=== PATIENT | female | born 1965 | race African-American/Black ===

== ENCOUNTER 2017-07-25 12:50 | Outpatient (CLI) | payer BC ==
--- NOTE | 2017-07-25 14:57 | MMO ---
BILATERAL DIGITAL SCREENING MAMMOGRAMS WITH CAD COMPARISON: 05/04/2016, 02/24/2015, and 05/14/2013. FINDINGS: Breast tissue is heterogeneously dense which may reduce the sensitivity of mammography. No suspicio us masses or calcifications are identified. IMPRESSION: BI-RADS Category 1: Negative. Routine annual mammographic screening is recommended. POS: KATHERINE
== END 2017-07-25 12:51 | disposition home or self-care (01) ==
LOC: MAMMO 12:50
PROVIDERS: ATTEND Family Medicine
DX: Z12.31 Encounter for screening mammogram for malignant neoplasm of breast (principal)
CPT/HCPCS: 77067; G0202

== ENCOUNTER 2018-07-31 11:27 | Outpatient (CLI) | payer BC | END 2018-07-31 11:28 | disposition home or self-care (01) | LOC: BICMAMMO 11:27 | PROVIDERS: ATTEND Family Medicine | DX: Z12.31 Encounter for screening mammogram for malignant neoplasm of breast (principal) | CPT/HCPCS: 77063; 77067 ==

== ENCOUNTER 2019-09-01 08:30 | Outpatient (CLI) | payer OTHER ==
--- NOTE | 2019-09-01 09:04 | ULT ---
ULTRASOUND ABDOMINAL AORTA: HISTORY: abdominal bruit FINDINGS: The abdominal aortic measurements are as follows: Proximal: 2 x 2.8 cm Mid: 1.1 x 1.4 cm Distal: 1.2 x 1.2 cm The right common iliac artery measures 5.58 mm in the left common iliac artery measures 6 x 10 mm. IMPRESSION: No evidence of abdominal aortic aneurysm.
== END 2019-09-01 08:31 | disposition home or self-care (01) ==
LOC: BICULT 08:30
PROVIDERS: ATTEND Family Medicine
DX: R09.89 Other specified symptoms and signs involving the circulatory and respiratory systems (principal)
CPT/HCPCS: 76775

== ENCOUNTER 2020-03-03 07:45 | Outpatient (CLI) | payer BC ==
--- NOTE | 2020-03-03 08:32 | MMO ---
Bilateral MAMMO Bilat Screen [facility]. CLINICAL HISTORY: Patient is 54 years old and is seen for screening. The patient has no family history of breast cancer. The patient has no personal history of cancer. VIEWS: The views performed were: bilateral craniocaudal with tomosynthesis and bilateral mediolateral oblique with tomosynthesis. FILMS COMPARED: The present examination has been compared to prior imaging studies performed at [facility] on 06/24/2007, 03/08/2009 and 07/31/2018, and at [facility] on 02/17/2011. This study has been interpreted with the assistance of computer-aided detection. MAMMOGRAM FINDINGS: There are scattered fibroglandular densities. There are no suspicious masses, suspicious calcifications, or new areas of architectural distortion. IMPRESSION: THERE IS NO MAMMOGRAPHIC EVIDENCE OF MALIGNANCY. A ROUTINE FOLLOW-UP MAMMOGRAM IN 1 YEAR IS RECOMMENDED. THE RESULTS OF THIS EXAM WERE SENT TO THE PATIENT. ACR BI-RADS Category 1 - Negative MAMMOGRAPHY NOTE: 1. A negative mammogram report should not delay a biopsy if a dominant of clinically suspicious mass is present. 2. Approximately 10% to 15% of breast cancers are not detected by mammography. 3. Adenosis and dense breasts may obscure an underlying neoplasm. Reported by: JOLANTA AMADO MD Electonically Signed: [id number]
== END 2020-03-03 07:46 | disposition home or self-care (01) ==
LOC: BICMAMMO 07:45
PROVIDERS: ATTEND Family Medicine
DX: Z12.31 Encounter for screening mammogram for malignant neoplasm of breast (principal)
CPT/HCPCS: 77063; 77067

== ENCOUNTER 2022-09-19 10:40 | Emergency (ER) | payer BC, OTHER ==
[2022-09-19 11:18] LABS: #Lymphocytes 1.7 thou/uL (1.20-3.40); #Monocytes 0.4 thou/uL (0.11-0.59); #Neutrophils 2.3 thou/uL (1.40-6.50); %Basophils 0.3 % (0.0-1.0); %Eosinophils 0.3 % (0.0-10.0); %Lymphocytes 38.3 % (21.0-51.0); %Monocytes 9.6 % (0.0-10.0); %Neutrophils 51.5 % (42.0-75.0); Hemoglobin 13.1 g/dL (12.0-16.0); Mean Corpuscular HGB CONC 32.9 g/dL (32.0-36.0); Mean Corpuscular Hemoglobin 28.5 pg (27.0-31.0); Mean Corpuscular Volume 86.5 fl (78.0-98.0); Mean Platelet Volume 7.5 fL (7.4-10.4); Platelet Count 181 10x3/uL (130-400); RBC Distribution Width 12.8 % (11.5-14.5); Red Blood Cell (RBC) Count 4.59 mill/uL (4.20-5.40); White Blood Cell (WBC) Count 4.4 10x3/uL (4.8-10.8)
[2022-09-19 12:01] LABS: ALT (SGPT) 26 U/L (8-55); AST (SGOT) 24 U/L (5-34); Alkaline Phosphatase 83 U/L (40-110); Anion Gap 12 mmol/L (10-20); BUN (Urea Nitrogen) 9 mg/dL (9.8-20.1); Bilirubin, Total 0.3 mg/dL (0.2-1.2); CK (CPK) 128 U/L (29-168); Calc. Creatinine Clearance 0 mL/min (70-130); Calcium 9.5 mg/dL (7.8-10.44); Carbon Dioxide 28 mmol/L (22-29); Chloride 107 mmol/L (98-107); Estimated GFR 71; Globulin 3.1 g/dL (2.4-3.5); Glucose 118 mg/dL (70-105); Lipase 35 U/L (8-78); Potassium 3.8 mmol/L (3.5-5.1); Protein, Total 7.1 g/dL (6.0-8.3); Sodium 143 mmol/L (136-145)
[2022-09-19 12:21] LABS: Bacteria/HPF None Seen HPF (None Seen); Bilirubin Negative (Negative); Blood, Urine Negative (Negative); Clarity Clear (Clear); Glucose, Urine (Dipstick) Normal (Negative); Ketone, Urine Negative (Negative); Leukocyte 250 Leu/uL (Negative); Nitrite Negative (Negative); Protein, Urine (Dipstick) Negative (Neg-Trace); RBC/HPF 0-3 HPF (0-3); Specific Gravity, Urine 1.035 (1.002-1.036); Squamous Epithelial 0-3 HPF (0-3); Urobilinogen Normal mg/dL (Less than 2); WBC/HPF 0-3 HPF (0-3)
[2022-09-19] MEDS ORDERED: Iopamidol-370 76% 500 ML 1 ML ONE (16:02)
== END 2022-09-19 13:35 | disposition home or self-care (01) ==
LOC: ERS 10:40
DX: R10.12 Left upper quadrant pain (principal); E78.5 Hyperlipidemia, unspecified; E03.9 Hypothyroidism, unspecified; E78.00 Pure hypercholesterolemia, unspecified; Z79.899 Other long term (current) drug therapy
CPT/HCPCS: 74177; 80053; 81003; 81015; 82550; 83690; 84484; 85025; 93005; Q9967